=== PATIENT | male | born 1990 | race Caucasian/White ===

== ENCOUNTER 2019-05-27 13:18 | Emergency (ER) | payer SELFPAY ==
[2019-05-27 13:29] VITALS: TEMP 98.8
[2019-05-27 14:08] VITALS: RESP 18
[2019-05-27 14:44] LABS: Appearance,Urine Clear (Clear); Bilirubin,Urine Negative (Negative); Blood,Urine Large (Negative); Color,Urine Yellow; Glucose,Urine (UA) Negative (Negative); Ketones,Urine 2+ (Negative); Leukocyte Esterase,Urine Negative (Negative); Nitrite,Urine Negative (Negative); Protein,Urine Trace (Negative); RBC,Urine >182 /hpf (0-5); Specific Gravity,Urine 1.018 (1.001-1.035); Urobilinogen,Urine <2.0 mg/dL (<2.0)
[2019-05-27 14:47] LABS: Glucose,Whole Blood 98 mg/dL (75-99)
[2019-05-27 15:19] LABS: Basophils # (A) 0.1 k/uL (0-0.2); Basophils % (A) 0 %; Eosinophils # (A) 0.1 k/uL (0-0.7); Eosinophils % (A) 1 %; HCT 43.8 % (39.0-53.0); HGB 14.6 gm/dL (13.0-17.5); Lymphocytes # (A) 1.6 k/uL (1.0-4.8); Lymphocytes % (A) 14 %; MCH 31.1 pg (25.0-35.0); MCHC 33.3 g/dL (31.0-37.0); MCV 93.4 fL (80.0-100.0); Mean Platelet Volume 8.4; Monocytes # (A) 0.4 k/uL (0-1.0); Monocytes % (A) 4 %; Neutrophils # (A) 9.3 k/uL (1.3-7.7); Neutrophils % (A) 80 %; Platelet Count 198 k/uL (150-450); RBC 4.69 m/uL (4.30-5.90); WBC 11.6 k/uL (3.8-10.6)
[2019-05-27 15:28] LABS: ALT 35 U/L (21-72); AST 24 U/L (17-59); African American GFR (CKD) >90 (>60 ml/min/1.73 sqM); Albumin 4.5 g/dL (3.5-5.0); Alkaline Phosphatase 72 U/L (38-126); Anion Gap 10 mmol/L; Blood Urea Nitrogen 15 mg/dL (9-20); Calcium 9.7 mg/dL (8.4-10.2); Carbon Dioxide 23 mmol/L (22-30); Chloride 110 mmol/L (98-107); Creatine Kinase 121 U/L (55-170); Glucose 98 mg/dL (74-99); Non-African American GFR(CKD) >90 (>60 ml/min/1.73 sqM); Sodium 143 mmol/L (137-145); Total Bilirubin 0.7 mg/dL (0.2-1.3); Total Protein 7.6 g/dL (6.3-8.2)
--- NOTE | 2019-05-27 15:30 | CT ---
EXAMINATION TYPE: CT abdomen pelvis wo con DATE OF EXAM: 05/27/2019 COMPARISON: HISTORY: Increased urgency and frequency of urination. With hematuria CT DLP: 848.3 mGycm Automated exposure control for dose reduction was used. TECHNIQUE: Helical acquisition of images was performed from the lung bases through the pelvis. FINDINGS: LUNG BASES: No significant abnormality is appreciated. LIVER/GB: No significant abnormality is appreciated. PANCREAS: No significant abnormality is seen. SPLEEN: Cost Control Analyst a spleen noted. ADRENALS: No significant abnormality is seen. KIDNEYS: There is mild right hydronephrosis secondary to an obstructing 2 mm right UVJ stone. There a re 2 additional less than 5 mm right renal calculi. No definite left renal calculi. FREE AIR: No free air is visualized ADENOPATHY: None visualized. OSSEOUS STRUCTURES: No significant abnormality is seen. BOWEL: Bowel gas pattern nonspecific. Appendix normal. No evidence of obstruction. OTHER: Aorta of normal caliber. IMPRESSION: 1. Mild right hydronephrosis secondary to obstructing 2 mm right UVJ calcification. 2. Additional less than 5 mm right renal nephrolithiasis.
[2019-05-27 15:55] VITALS: BP 133/84; PULSE 98
--- NOTE | 2019-05-27 16:04 | ED ---
Male Urogenital HPI - General Chief complaint: Urogenital Stated complaint: Possible UTI Time Seen by Provider: 05/27/19 13:58 Source: patient Mode of arrival: ambulatory Limitations: no limitations - History of Present Illness Initial comments: 28-year-old male presenting today for chief complaint of urgency. Patient states that he has had urgency like he has to use the restroom for the past 2 days. He states it began yesterday around noon. Patient states that she has no dysuria he states he has noticed some possible blood in his urine he states he is not positive this is just dark. Patient states he is able to urinate he denies any pressure in the lower pelvic region. He denies any back pain. Denies fever. Patient denies any flulike symptoms. Patient denies history of kidney stones. Remaining review of systems negative upon arrival patient appears well no signs of acute distress. Vital signs within acceptable limits and patient is afebrile. - Related Data Previous Rx's Medication Instructions Recorded Tamsulosin [Flomax] 0.4 mg PO DAILY 7 Days #7 cap 05/27/19 Allergies Allergy/AdvReac Type Severity Reaction Status Date / Time No Known Allergies Allergy Verified 05/27/19 13:29 Review of Systems ROS Statement: Those systems with pertinent positive or pertinent negative responses have been documented in the HPI. ROS Other: All systems not noted in ROS Statement are negative. Past Medical History Past Medical History: No Reported History History of Any Multi-Drug Resistant Organisms: None Reported Past Surgical History: Tonsillectomy Past Psychological History: No Psychological Hx Reported Smoking Status: Former smoker Past Alcohol Use History: Occasional Past Drug Use History: Marijuana General Exam - General Exam Comments Initial Comments: General: The patient is awake and alert, in no distress, and does not appear acutely ill. Eye: Pupils are equal, round and reactive to light, extra-ocular movements are intact. No nystagmus. There is normal conjunctiva bilaterally. No signs of icterus. Cardiovascular: There is a regular rate and rhythm. No murmur, rub or gallop is appreciated. Respiratory: Lungs are clear to auscultation, respirations are non-labored, breath sounds are equal. No wheezes, stridor, rales, or rhonchi. Gastrointestinal: Soft, non-distended, non-tender abdomen without masses or organomegaly noted. There is no rebound or guarding present. No CVA tenderness. Bowel sounds are unremarkable. Musculoskeletal: Normal ROM, no tenderness. Strength 5/5. Sensation intact. Pulses equal bilaterally 2+. Neurological: A&O x 3. CN II-XII intact, There are no obvious motor or sensory deficits. Coordination appears grossly intact. Speech is normal. Skin: Skin is warm and dry and no rashes or lesions are noted. Psychiatric: Cooperative, appropriate mood & affect, normal judgment. Limitations: no limitations Course Vital Signs 05/27/19 05/27/19 05/27/19 13:24 14:07 15:54 Temperature 98.8 F Pulse Rate 126 H 105 H 98 Respiratory 16 18 18 Rate Blood Pressure 136/84 139/85 133/84 O2 Sat by Pulse 97 97 96 Oximetry Medical Decision Making - Medical Decision Making 28-year-old male presenting for urgency. Patient states she is able to urinate does not feel like he is retaining however there is changes in the fluoroscopy and possible dark urine. Urinalysis revealed significant amount of bright red blood cell suspicious for stone. CT of the abdomen and pelvis without contrast was obtained revealing a 2 mm kidney stone lodged at the UVJ. Mild hydronephrosis. No evidence of septic stone. No white blood cells in the urine. Patient appears well he is in no discomfort. Able to urinate. Patient is given prescription for Flomax. And will be discharged with a strainer as well as urology follow-up. Return parameters including development of fever or flulike symptoms, inability to urinate were discussed at length with patient who verbalized understanding. Patient was discharged appearing well after di scussing the case [facility] Dr. Devi. - Lab Data Result diagrams: 05/27/19 15:01 05/27/19 15:01 Lab Results 05/27/19 05/27/19 05/27/19 Range/Units 14:10 14:45 15:01 WBC 11.6 H (3.8-10.6) k/uL RBC 4.69 (4.30-5.90) m/uL Hgb 14.6 (13.0-17.5) gm/dL Hct 43.8 (39.0-53.0) % MCV 93.4 (80.0-100.0) fL MCH 31.1 (25.0-35.0) pg MCHC 33.3 (31.0-37.0) g/dL RDW 13.0 (11.5-15.5) % Plt Count 198 (150-450) k/uL Neutrophils % 80 % Lymphocytes % 14 % Monocytes % 4 % Eosinophils % 1 % Basophils % 0 % Neutrophils # 9.3 H (1.3-7.7) k/uL Lymphocytes # 1.6 (1.0-4.8) k/uL Monocytes # 0.4 (0-1.0) k/uL Eosinophils # 0.1 (0-0.7) k/uL Basophils # 0.1 (0-0.2) k/uL Sodium (137-145) mmol/L Potassium (3.5-5.1) mmol/L Chloride (98-107) mmol/L Carbon Dioxide (22-30) mmol/L Anion Gap mmol/L BUN (9-20) mg/dL Creatinine (0.66-1.25) mg/dL Est GFR (CKD-EPI)AfAm (>60 ml/min/1.73 sqM) Est GFR (CKD-EPI)NonAf (>60 ml/min/1.73 sqM) Glucose (74-99) mg/dL POC Glucose (mg/dL) 98 (75-99) mg/dL POC Glu [employer] Developer Florencio Quan Calcium (8.4-10.2) mg/dL Total Bilirubin (0.2-1.3) mg/dL AST (17-59) U/L ALT (21-72) U/L Alkaline Phosphatase (38-126) U/L Creatine Kinase (55-170) U/L Total Protein (6.3-8.2) g/dL Albumin (3.5-5.0) g/dL Urine Color Yellow Urine Appearance Clear (Clear) Urine pH 6.0 (5.0-8.0) Ur Specific [place] 1.018 (1.001-1.035) Urine Protein Trace H (Negative) Urine Glucose (UA) Negative (Negative) Urine Ketones 2+ H (Negative) Urine Blood Large H (Negative) Urine Nitrite Negative (Negative) Urine Bilirubin Negative (Negative) Urine Urobilinogen <2.0 (<2.0) mg/dL Ur Leukocyte Esterase Negative (Negative) Urine RBC >182 H (0-5) /hpf 05/27/19 Range/Units 15:01 WBC (3.8-10.6) k/uL RBC (4.30-5.90) m/uL Hgb (13.0-17.5) gm/dL Hct (39.0-53.0) % MCV (80.0-100.0) fL MCH (25.0-35.0) pg MCHC (31.0-37.0) g/dL RDW (11.5-15.5) % Plt Count (150-450) k/uL Neutrophils % % Lymphocytes % % Monocytes % % Eosinophils % % Basophils % % Neutrophils # (1.3-7.7) k/uL Lymphocytes # (1.0-4.8) k/uL Monocytes # (0-1.0) k/uL Eosinophils # (0-0.7) k/uL Basophils # (0-0.2) k/uL Sodium 143 (137-145) mmol/L Potassium 4.0 (3.5-5.1) mmol/L Chloride 110 H (98-107) mmol/L Carbon Dioxide 23 (22-30) mmol/L Anion Gap 10 mmol/L BUN 15 (9-20) mg/dL Creatinine 1.06 (0.66-1.25) mg/dL Est GFR (CKD-EPI)AfAm >90 (>60 ml/min/1.73 sqM) Est GFR (CKD-EPI)NonAf >90 (>60 ml/min/1.73 sqM) Glucose 98 (74-99) mg/dL POC Glucose (mg/dL) (75-99) mg/dL POC Glu Net Mobile Developer ID Calcium 9.7 (8.4-10.2) mg/dL Total Bilirubin 0.7 (0.2-1.3) mg/dL AST 24 (17-59) U/L ALT 35 (21-72) U/L Alkaline Phosphatase 72 (38-126) U/L Creatine Kinase 121 (55-170) U/L Total Protein 7.6 (6.3-8.2) g/dL Albumin 4.5 (3.5-5.0) g/dL Urine Color Urine Appearance (Clear) Urine pH (5.0-8.0) Ur Specific [place] (1.001-1.035) Urine Protein (Negative) Urine Glucose (UA) (Negative) Urine Ketones (Negative) Urine Blood (Negative) Urine Nitrite (Negative) Urine Bilirubin (Negative) Urine Urobilinogen (<2.0) mg/dL Ur Leukocyte Esterase (Negative) Urine RBC (0-5) /hpf Disposition Clinical Impression: Right ureteral stone, Urinary urgency, Hematuria Disposition: HOME SELF-CARE Condition: Good Instructions (If sedation given, give patient instructions): Kidney Stones (ED) Additional Instructions: Please use medication as discussed. Please follow-up with urology in the next 1-2 weeks.. Please return to emergency room if the symptoms increase or worsen or for any other concerns. Prescriptions: Tamsulosin [Flomax] 0.4 mg PO DAILY 7 Days #7 cap Is patient prescribed a controlled substance at d/c from ED?: No Referrals: None,Stated [Primary Care Provider] - 1-2 days Cameron Elizabeth MD [STAFF PHYSICIAN] - 1-2 days Time of Disposition: 16:03
[2019-05-28 13:56] LABS: N. gonorrhoeae,PCR Negative (Neg,Equiv); Neisseria Source Urine
[2019-05-28 14:04] LABS: C. trachomatis,PCR Negative (Neg,Equiv); Chlamydia trachomatis Source Urine
== END 2019-05-27 16:15 | disposition home or self-care (01) ==
LOC: EC 13:18
DX: N13.2 Hydronephrosis with renal and ureteral calculous obstruction (principal); Z87.891 Personal history of nicotine dependence
CPT/HCPCS: 36415; 74176; 80053; 81001; 82550; 85025; 87491; 87591; 99284